=== PATIENT | female | born 2000 | race Two or more races ===

== ENCOUNTER 2021-11-23 21:17 | Emergency (ER) | payer MEDICAID ==
[~2021-11-23] VITALS: Ht 154.9 cm; Wt 48.2 kg
[2021-11-23 21:34] VITALS: BP 111/67
== END 2021-11-23 23:25 | disposition home or self-care (01) ==
LOC: ER 21:19
DX: M79.675 Pain in left toe(s) (principal)
CPT/HCPCS: 73660; 99283